=== PATIENT | male | born 1955 | race Caucasian/White ===

== ENCOUNTER 2017-07-12 14:47 | Outpatient (CLI) | payer OTHER | END 2017-07-12 14:53 | disposition home or self-care (01) | LOC: LAB 14:47 | DX: R97.20 Elevated prostate specific antigen [PSA] (principal) ==

== ENCOUNTER 2017-07-30 07:14 | Outpatient (CLI) | payer OTHER | END 2017-07-30 07:23 | disposition home or self-care (01) | LOC: SONOGRAMA 07:14 | DX: R97.20 Elevated prostate specific antigen [PSA] (principal) ==

== ENCOUNTER 2017-11-18 10:34 | Outpatient (CLI) | payer OTHER | END 2017-11-18 10:40 | disposition home or self-care (01) | LOC: LAB 10:34 | DX: R97.20 Elevated prostate specific antigen [PSA] (principal) ==

== ENCOUNTER 2018-12-06 10:59 | Outpatient (CLI) | payer OTHER | END 2018-12-06 11:14 | disposition home or self-care (01) | LOC: LAB 10:59 | DX: R97.20 Elevated prostate specific antigen [PSA] (principal) ==

== ENCOUNTER 2018-12-23 07:08 | Outpatient (CLI) | payer OTHER | END 2018-12-23 07:24 | disposition home or self-care (01) | LOC: SONOGRAMA 07:08 | DX: C61 Malignant neoplasm of prostate (principal); R97.20 Elevated prostate specific antigen [PSA] ==

== ENCOUNTER → 2019-02-10 | Outpatient (CLI) | payer OTHER | END | disposition home or self-care (01) | LOC: NUCLEAR 08:27 | DX: C61 Malignant neoplasm of prostate (principal) | CPT/HCPCS: 78306; A9503 ==

== ENCOUNTER 2019-02-17 10:12 | Outpatient (CLI) | payer OTHER | END 2019-02-17 10:38 | disposition home or self-care (01) | LOC: SONOGRAMA 10:12 | DX: C61 Malignant neoplasm of prostate (principal) ==

== ENCOUNTER 2019-06-15 08:58 | Outpatient (CLI) | payer OTHER | END 2019-06-15 10:20 | disposition home or self-care (01) | LOC: NUCLEAR 08:58 | DX: I87.2 Venous insufficiency (chronic) (peripheral) (principal); C61 Malignant neoplasm of prostate ==

== ENCOUNTER 2019-07-12 12:39 | Outpatient (CLI) | payer OTHER | END 2019-07-12 15:24 | disposition home or self-care (01) | LOC: TOM 12:39 | DX: R10.84 Generalized abdominal pain (principal) ==

== ENCOUNTER 2020-04-04 12:27 | Outpatient (CLI) | payer OTHER | END 2020-04-04 12:56 | disposition home or self-care (01) | LOC: SONOGRAMA 12:27 | PROVIDERS: ATTEND Urology | DX: R10.2 Pelvic and perineal pain (principal); C61 Malignant neoplasm of prostate; M79.89 Other specified soft tissue disorders ==

== ENCOUNTER 2020-04-08 09:15 | Outpatient (CLI) | payer OTHER | END 2020-04-08 11:51 | disposition home or self-care (01) | LOC: NUCLEAR 09:15 | PROVIDERS: ATTEND Urology | DX: M79.89 Other specified soft tissue disorders (principal); C61 Malignant neoplasm of prostate ==

== ENCOUNTER 2021-01-27 09:08 | Outpatient (CLI) | payer OTHER | END 2021-01-27 09:13 | disposition home or self-care (01) | LOC: NUCLEAR 09:08 | DX: I73.9 Peripheral vascular disease, unspecified (principal) ==